=== PATIENT | male | born 1975 | race Caucasian/White ===

== ENCOUNTER 2020-03-27 11:01 | Emergency (ER) | payer OTHER ==
[2020-03-27] MEDS ORDERED: Flexeril 10 MG PO (15:36)
[2020-03-27] MEDS ORDERED: Voltaren Gel 1 % TOP (15:36)
[2020-03-27] MEDS ORDERED: HYDROCODON-ACE1 EAC4 PO (15:42)
== END 2020-03-27 15:50 | disposition home or self-care (01) ==
LOC: ER1 11:01
DX: S22.089A Unspecified fracture of T11-T12 vertebra, initial encounter for closed fracture (principal); F17.210 Nicotine dependence, cigarettes, uncomplicated; Z91.041 Radiographic dye allergy status; G62.9 Polyneuropathy, unspecified; W01.0XXA Fall on same level from slipping, tripping and stumbling without subsequent striking against object, initial encounter
CPT/HCPCS: 72072; 72131; 99284